=== PATIENT | male | born 1955 | race Caucasian/White ===

== ENCOUNTER 2019-01-02 23:40 | Emergency (ER) | payer OTHER ==
--- NOTE | 2019-01-03 00:17 | ERPHSYRPT ---
- History of Present Illness Time Seen by Provider: 01/03/19 00:05 Source: patient, family Exam Limitations: clinical condition Patient Subjective Stated Complaint: pt states he took a new a medication for sleep tonight- seroquel 200mg and has been very restless and unable to stop moving. started half an hour after taking seroquel, Triage Nursing Assessment: pt alert and oriented, asnwers questions approp. pt ambulatory with steady gait noted. respriations nonlabored with lungs cta. pt unable to keep legs from moving while in bed. skin pink warm an d dry. Physician History: 63 y/o morbidly obese white male with h/o restless leg syndrome and insomnia on mirapex, clonazepam and gabapentin. he started seroquel 200mg orally one tab this evening for the first time to help with insomnia and restless leg sx. pts legs became more restless and twitching within 30 to 40 minutes after the seroquel. he denies headache, visual changes, soa, cp or abd pain. he notices a rare upper ext twitch but his primary change is in his bilat lower ext restlessness and abnl movements. Timing/Duration: today Severity: moderate Character of Deficits: other (increasing twitches, movements and wants to be up and moving around) Baseline/Normal Cognition: alert oriented x 3 Current Cognition: alert oriented x 3 Baseline Gait: walks w/o assistance Associated Symptoms: other (see above), No loss of consciousness, No vision changes, No chest pain, No headache Allergies/Adverse Reactions: Sulfa (Sulfonamide Antibiotics) Allergy (Verified 01/03/19 00:08) Home Medications: Aspirin EC 81 mg [Ecotrin 81 mg] 81 mg PO DAILY 01/03/19 [History] Clonazepam 0.5 mg [Klonopin 0.5 MG] 0.5 mg PO HS 01/03/19 [History] Desmopressin Acetate [Ddavp] 0.2 mg PO DAILY 01/03/19 [History] Hydrochlorothiazide 25 mg [hydroDIURIL 25 MG] 25 mg PO DAILY 01/03/19 [ History] Hydroxyzine HCl 25 mg [Atarax 25 mg] 25 mg PO DAILY 01/03/19 [History] Lisinopril 20 mg [Zestril 20 MG] 20 mg PO DAILY 01/03/19 [History] Montelukast Sodium 10 mg [Singulair 10 MG] 10 mg PO DAILY 01/03/19 [History] Pramipexole Di-HCl [Mirapex] 0.25 mg PO HS 01/03/19 [History] Theanine [l-Theanine] 3 tab PO TID 01/03/19 [History] Hx Tetanus, Diphtheria Vaccination/Date Given: Yes Hx Influenza Vaccination/Date Given: Yes Hx Pneumococcal Vaccination/Date Given: No Immunizations Up to Date: Yes - Review of Systems Constitutional: No Symptoms Eyes: No Symptoms Ears, Nose, & Throat: No Symptoms Respiratory: No Symptoms Cardiac: No Symptoms Abdominal/Gastrointestinal: No Symptoms Genitourinary Symptoms: No Symptoms Skin: No Symptoms Neurological: Tics, Tremors, Other (restless legs) Psychological: No Symptoms Endocrine: No Symptoms Hematologic/Lymphatic: No Symptoms Immunological/Allergic: No Symptoms All Other Systems: Reviewed and Negative - Past Medical History Neurological History: Other (restless legs) ENT History: No Pertinent History Cardiac History: No Pertinent History, Hypertension Respiratory History: No Pertinent History Endocrine Medical History: No Pertinent History Musculoskeletal History: Other (restless legs) GI Medical History: No Pertinent History History: No Pertinent History Psycho-Social History: No Pertinent History Male Reproductive Disorders: No Pertinent History Other Medical History: rls - Past Surgical History Past Surgical History: Yes - Social History Smoking Status: Never smoker Exposure to second hand smoke: No Drug Use: none Patient Lives Alone: Yes - Nursing Vital Signs Nursing Vital Signs: Initial Vital Signs Pulse Rate 107 H 01/02/19 23:50 Respiratory Rate 18 01/02/19 23:50 Blood Pressure 149/92 01/02/19 23:50 O2 Sat by Pulse Oximetry 95 01/02/19 23:50 Pain Scale Pain Intensity 0 - [place] Coma Scale Best Eye Response ([place]): (4) open spontaneously Best Verbal Response ([place]): (5) oriented Best Motor Response ([place]): (6) obeys commands [place] Total: 15 - Physical Exam General Appearance: mild distress, alert, anxiety, obese Eye Exam: bilateral eye: normal inspection, PERRL, EOMI Ears, Nose, Throat Exam: normal ENT inspection, moist mucous membranes Neck Exam: normal inspection, non-tender, supple, full range of motion Respiratory: normal breath sounds, lungs clear, airway intact, No chest tenderness, No respiratory distress Cardiovascular: tachycardia (mild) Gastrointestinal: soft, normal bowel sounds, No tenderness Back Exam: normal inspection, normal range of motion, No CVA tenderness, No vertebral tenderness Extremity Exam: normal range of motion, pelvis stable, other (constant movement of bilat lower ext. 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 Exam: normal hearing, normal speech, PERRL, tongue midline Coordination/Gait: normal finger to nose, normal cerebellar function Motor/Sensory: no motor deficit Skin Exam: normal color, warm, dry SpO2 Interpretation: borderline oxygenation SpO2: 95 - Course Nursing assessment & vital signs reviewed: Yes EKG Interpreted by Me: RATE (76), Sinus Rhythm, NORMAL AXIS, NORMAL INTERVALS, NORMAL QRS, NORMAL ST-T, Other (qt interval wnl) Ordered Tests: Active Orders 24 hr Category Date Time Status Pecan Grower STAT Care 01/03/19 00:25 Active EKG-ER Only STAT Care 01/03/19 00:25 Active IV Insertion STAT Care 01/03/19 00:25 Active ACETAMINOPHEN Stat Lab 01/03/19 00:50 Completed CBC W DIFF Stat Lab 01/03/19 00:50 Completed CMP Stat Lab 01/03/19 00:50 Completed MAG [MAGNESIUM] Stat Lab 01/03/19 00:50 Completed SALICYLATE Stat Lab 01/03/19 00:50 Completed Urine Triage Profile Stat Lab 01/03/19 00:50 Completed Medication Summary Generic Name Dose Route Start Last Admin Trade Name Freq PRN Reason Stop Dose Admin Sodium Chloride 1,000 mls @ 100 mls/hr 01/03/19 00:30 01/03/19 00:30 Sodium Chloride 0.9% 1000 Ml IV 02/02/19 00:29 100 mls/hr .Q10H LONNY Administration Discontinued Medications Generic Name Dose Route Start Last Admin Trade Name Freq PRN Reason Stop Dose Admin Benztropine Mesylate 1 mg 01/03/19 01:49 01/03/19 02:06 Cogentin 0.5 Mg PO 01/03/19 01:50 1 mg STAT ONE Administration Diphenhydramine HCl 25 mg 01/03/19 01:01 01/03/19 01:08 Benadryl 50 Mg/Ml IV 01/03/19 01:02 25 mg STAT ONE Administration Diphenhydramine HCl Confirm 01/03/19 01:03 Benadryl 50 Mg/Ml Administered 01/03/19 01:04 Dose 50 mg .ROUTE .STK-MED ONE Lorazepam 2 mg 01/03/19 00:26 01/03/19 00:31 Ativan 2 Mg/1 Ml Vial IV 01/03/19 00:27 2 mg STAT ONE Administration Lorazepam Confirm 01/03/19 00:25 Ativan 2 Mg/1 Ml Vial Administered 01/03/19 00:26 Dose 2 mg .ROUTE .STK-MED ONE Ondansetron HCl 4 mg 01/03/19 00:25 01/03/19 00:30 Zofran 4 Mg/2 Ml Vial IV 01/03/19 00:26 4 mg STAT ONE Administration Ondansetron HCl Confirm 01/03/19 00:29 Zofran 4 Mg/2 Ml Vial Administered 01/03/19 00:30 Dose 4 mg .ROUTE .STK-MED ONE Lab/Rad Data: Laboratory Result Diagrams 01/03/19 00:50 01/03/19 00:50 Laboratory Results 01/03/19 01/03/19 01/03/19 Range/Units 00:50 00:50 00:50 WBC (4.0-10.5) K/mm3 RBC (4.1-5.6) M/mm3 Hgb (12.5-18.0) gm/dl Hct (42-50) % MCV (78-100) fl MCH (26-32) pg MCHC (32-36) g/dl RDW (11.5-14.0) % Plt Count (150-450) K/mm3 MPV (6-9.5) fl Gran % (36.0-66.0) % Eos # (Auto) (0-0.5) Absolute Lymphs (auto) (1.0-4.6) Absolute Monos (auto) (0.0-1.3) Lymphocytes % (24.0-44.0) % Monocytes % (0.0-12.0) % Eosinophils % (0.00-5.0) % Basophils % (0.0-0.4) % Absolute Granulocytes (1.4-6.9) Basophils # (0-0.4) Sodium 138 (137-145) mmol/L Potassium 4.1 (3.5-5.1) mmol/L Chloride 101 (98-107) mmol/L Carbon Dioxide 29 (22-30) mmol/L Anion Gap 12.4 (5-15) MEQ/L BUN 17 (9-20) mg/dL Creatinine 1.05 (0.66-1.25) mg/dL Estimated GFR > 60.0 ML/MIN Glucose 102 (74-106) mg/dL Calcium 9.4 (8.4-10.2) mg/dL Magnesium 2.0 (1.6-2.3) mg/dL Total Bilirubin 0.60 (0.2-1.3) mg/dL AST 41 (17-59) U/L ALT 38 (0-50) U/L Alkaline Phosphatase 88 (38-126) U/L Serum Total Protein 7.0 (6.3-8.2) g/dL Albumin 3.9 (3.5-5.0) g/dL Salicylates < 1.0 L (2-20) mg/dL Urine Opiates Level NEGATIVE (NEGATIVE) Ur Methadone NEGATIVE (NEGATIVE) Acetaminophen < 10 L (10-30) ug/ml Urine Barbiturates NEGATIVE (NEGATIVE) Ur Phencyclidine (PCP) NEGATIVE (NEGATIVE) Urine Amphetamine NEGATIVE (NEGATIVE) U Benzodiazepine Level POSITIVE (NEGATIVE) Urine Cocaine NEGATIVE (NEGATIVE) Urine Marijuana (THC) NEGATIVE (NEGATIVE) 01/03/19 Range/Units 00:50 WBC 8.3 (4.0-10.5) K/mm3 RBC 5.04 (4.1-5.6) M/mm3 Hgb 15.3 (12.5-18.0) gm/dl Hct 45.2 (42-50) % MCV 89.7 (78-100) fl MCH 30.4 (26-32) pg MCHC 33.8 (32-36) g/dl RDW 14.9 H (11.5-14.0) % Plt Count 179 (150-450) K/mm3 MPV 9.3 (6-9.5) fl Gran % 54.7 (36.0-66.0) % Eos # (Auto) 0.23 (0-0.5) Absolute Lymphs (auto) 2.56 (1.0-4.6) Absolute Monos (auto) 0.94 (0.0-1.3) Lymphocytes % 30.8 (24.0-44.0) % Monocytes % 11.3 (0.0-12.0) % Eosinophils % 2.8 (0.00-5.0) % Basophils % 0.4 (0.0-0.4) % Absolute Granulocytes 4.56 (1.4-6.9) Basophils # 0.03 (0-0.4) Sodium (137-145) mmol/L Potassium (3.5-5.1) mmol/L Chloride (98-107) mmol/L Carbon Dioxide (22-30) mmol/L Anion Gap (5-15) MEQ/L BUN (9-20) mg/dL Creatinine (0.66-1.25) mg/dL Estimated GFR ML/MIN Glucose (74-106) mg/dL Calcium (8.4-10.2) mg/dL Magnesium (1.6-2.3) mg/dL Total Bilirubin (0.2-1.3) mg/dL AST (17-59) U/L ALT (0-50) U/L Alkaline Phosphatase (38-126) U/L Serum Total Protein (6.3-8.2) g/dL Albumin (3.5-5.0) g/dL Salicylates (2-20) mg/dL Urine Opiates Level (NEGATIVE) Ur Methadone (NEGATIVE) Acetaminophen (10-30) ug/ml Urine Barbiturates (NEGATIVE) Ur Phencyclidine (PCP) (NEGATIVE) Urine Amphetamine (NEGATIVE) U Benzodiazepine Level (NEGATIVE) Urine Cocaine (NEGATIVE) Urine Marijuana (THC) (NEGATIVE) - Progress Progress: improved, re-examined Progress Note: 01/03/19 01:27 pt now sleeps intermittently after ativan. restless leg sx stop for 10 to 15 seconds. benadryl 50mg iv added. will allow pt to sleep and reassess. pt vitals are being continuously monitored. 01/03/19 05:14 pt sleeping soundly and comfortable. mild twitch of bilat lower extremities in response to noise in the room once in 4 minutes. i observed him while he was sleeing. pt states he is much better. he feels he can sleep better at his own home. Counseled pt/family regarding: lab results, diagnosis, need for follow-up - Departure Departure Disposition: Home Clinical Impression: Medication reaction, Antipsychotic-induced akathisia Condition: Stable Critical Care Time: No Referrals: DOCTOR,NO FAMILY [Primary Care Provider] - Additional Instructions: stop seroquel. call the physician who prescribed your seroquel to inform him of new symptoms. Add benadryl 25mg orally every 8 hours until you speak with your prescribing physician and receive further instructions. Increase your clonazepam to 0.5mg orally in the mid morning and 1mg orally at bedtime until you speak with prescribing physician and receive further instructions.
[2019-01-03] MEDS ORDERED: Sodium Chloride 0.9% 1000 ML 1,000 ML ONE (00:25)
[2019-01-03] MEDS ORDERED: Ativan 2 MG/1 ML VIAL ONE (00:25)
[2019-01-03] MEDS ORDERED: Zofran 4 MG/2 ML VIAL IV ONE (00:25)
[2019-01-03] MEDS ORDERED: Ativan 2 MG/1 ML VIAL IV ONE (00:26)
[2019-01-03] MEDS ORDERED: Zofran 4 MG/2 ML VIAL ONE (00:29)
[2019-01-03] MEDS ORDERED: Sodium Chloride 0.9% 1000 ML 1,000 ML IV SCH (00:30)
[2019-01-03 00:54] LABS: BASOPHIL % 0.4 % (0.0-0.4); Basophil (Absolute #) 0.03 (0-0.4); Eosinophil % 2.8 % (0.00-5.0); Eosinophil (Absolute #) 0.23 (0-0.5); Granulocyte Absolute (ANC) 4.56 (1.4-6.9); Granulocytes % 54.7 % (36.0-66.0); Hematocrit 45.2 % (42-50); Hemoglobin 15.3 gm/dl (12.5-18.0); Lymphocyte (Absolute #) 2.56 (1.0-4.6); Lymphocytes % 30.8 % (24.0-44.0); Mean Cell Volume 89.7 fl (78-100); Mean Corpuscular Hemoglobin 30.4 pg (26-32); Mean Corpuscular Hgb Concent. 33.8 g/dl (32-36); Mean Platelet Volume 9.3 fl (6-9.5); Monocyte (Absolute #) 0.94 (0.0-1.3); Monocytes % 11.3 % (0.0-12.0); Platelet Count 179 K/mm3 (150-450); Red Blood Count 5.04 M/mm3 (4.1-5.6); Red Cell Distribution Width 14.9 % (11.5-14.0); White Blood Count 8.3 K/mm3 (4.0-10.5)
[2019-01-03] MEDS ORDERED: BENADRYL 50 MG/ML IV ONE (01:01)
[2019-01-03] MEDS ORDERED: BENADRYL 50 MG/ML ONE (01:03)
[2019-01-03 01:05] LABS: ALBUMIN 3.9 g/dL (3.5-5.0); ALKALINE PHOSPHATASE 88 U/L (38-126); ANION GAP 12.4 MEQ/L (5-15); BLOOD UREA NITROGEN 17 mg/dL (9-20); CHLORIDE 101 mmol/L (98-107); Calcium 9.4 mg/dL (8.4-10.2); Carbon Dioxide 29 mmol/L (22-30); Creatinine 1 1.05 mg/dL (0.66-1.25); Glucose 102 mg/dL (74-106); Potassium 4.1 mmol/L (3.5-5.1); SGOT/AST 41 U/L (17-59); SGPT/ALT 38 U/L (0-50); SODIUM 138 mmol/L (137-145)
[2019-01-03 01:07] LABS: ACETAMINOPHEN < 10 ug/ml (10-30)
[2019-01-03 01:08] LABS: SALICYLATE < 1.0 mg/dL (2-20)
[2019-01-03 01:13] LABS: Amphetamine,Urine NEGATIVE (NEGATIVE); Barbiturate,Urine NEGATIVE (NEGATIVE); Benzodiazepine,Urine POSITIVE (NEGATIVE); Cocaine,Urine NEGATIVE (NEGATIVE); Methadone,Urine NEGATIVE (NEGATIVE); Opiate,Urine NEGATIVE (NEGATIVE); PCP,Urine NEGATIVE (NEGATIVE); THC,Urine NEGATIVE (NEGATIVE)
[2019-01-03] MEDS ORDERED: COGENTIN 0.5 MG PO ONE (01:49)
[2019-01-03 05:59] VITALS: BP 111/73; PULSE 83; O2SAT 96
== END 2019-01-03 05:56 | disposition home or self-care (01) ==
LOC: ED 23:40
DX: G25.71 Drug induced akathisia (principal); T43.505A Adverse effect of unspecified antipsychotics and neuroleptics, initial encounter; I10 Essential (primary) hypertension; Z79.899 Other long term (current) drug therapy
CPT/HCPCS: 36000; 36415; 80053; 80307; 83735; 85025; 93005; 93041; 96360; 96361; 96374; 96375; 99285; G0481; J1200; J2060; J2405; A9270-GY